=== PATIENT | female | born 1960 | race Caucasian/White ===

== ENCOUNTER 2024-05-27 12:54 | Outpatient (CLI) | payer OTHER | END 2024-05-27 12:55 | disposition home or self-care (01) | LOC: RAD 12:54 | PROVIDERS: ATTEND Student in an Organized Health Care Education/Training Program | DX: Z48.813 Encounter for surgical aftercare following surgery on the respiratory system (principal); Z90.2 Acquired absence of lung [part of]; J90 Pleural effusion, not elsewhere classified | CPT/HCPCS: 71046 ==

== ENCOUNTER 2024-05-28 13:02 | Outpatient (CLI) | payer OTHER | END 2024-05-28 13:03 | disposition home or self-care (01) | LOC: RAD 13:02 | PROVIDERS: ATTEND Student in an Organized Health Care Education/Training Program | DX: C34.11 Malignant neoplasm of upper lobe, right bronchus or lung (principal); Z98.890 Other specified postprocedural states | CPT/HCPCS: 71046 ==